=== PATIENT | male | born 1990 | race Caucasian/White ===

== ENCOUNTER 2016-12-07 21:50 | Emergency (ER) | payer BC ==
[2016-12-07 22:01] VITALS: BP 149/84
[2016-12-07] MEDS ORDERED: Lidocaine 1% with EPINEPHrine 1:100,000 20 ML MDV INJECT ONE (22:30)
--- NOTE | 2016-12-07 22:33 | EDM.PDOC ---
ED HPI GENERAL MEDICAL PROBLEM - General Chief Complaint: Laceration Stated Complaint: CUT LEFT HAND Time Seen by Provider: 12/07/16 22:29 Source of Information: Reports: Patient History Limitations: Reports: No Limitations - History of Present Illness INITIAL COMMENTS - FREE TEXT/NARRATIVE: Patient is a 26-year-old male presents ED complaining of a laceration between the thumb and forefinger measuring approximate 1 cm in length while utilizing a utility cart to cut a credit card into pieces. Bleeding has subsided. Pain is minimal. No n/t to hand. Left Hand Pain Score (Numeric/FACES): 2 - Related Data Allergies Allergy/AdvReac Type Severity Reaction Status Date / Time No Known Allergies Allergy Verified 12/07/16 22:01 Home Meds: Home Meds Albuterol Sulfate [Proair Hfa] 8.5 gm IH BID 12/07/16 [History] Fexofenadine [Awa] 180 mg PO DAILY 12/07/16 [History] Fluticasone/Salmeterol [Advair Diskus 100-50] 1 puff INH BID 12/07/16 [History] Montelukast [Singulair] 4 mg PO DAILY 12/07/16 [History] Past Medical History Respiratory History: Reports: Asthma Social & Family History - Tobacco Use Smoking Status *Q: Former Smoker Used Tobacco, but Quit: Yes Month Tobacco Last Used: 12 Second Hand Smoke Exposure: No - Caffeine Use Caffeine Use: Reports: Coffee, Soda - Recreational Drug Use Recreational Drug Use: No ED ROS GENERAL - Review of Systems Review Of Systems: ROS reveals no pertinent complaints other than HPI. ED EXAM, SKIN/RASH Exam: See Below Exam Limited By: No Limitations General Appearance: Alert, WD/WN, No Apparent Distress Ears: Hearing Grossly Normal Nose: Normal Inspection Throat/Mouth: Normal Voice, No Airway Compromise Neck: Normal Inspection, Supple Respiratory/Chest: No Respiratory Distress, No Accessory Muscle Use Cardiovascular: Normal Peripheral Pulses, Regular Rate, Rhythm Peripheral Pulses: 2+: Radial (L) Neurological: Alert, Oriented, CN II-XII Intact Psychiatric: Normal Affect, Normal Mood Skin: Warm, Dry, Normal Color Location, Skin: Other ( Small 1 cm deep laceration between the fourth finger and thumb. Bleeding is controlled. Minimal pain present.) ED SKIN PROCEDURES - Laceration/Wound Repair Left Hand Lac/Wound length In cm: 1 Appearance: Subcutaneous, Clean Distal NVT: Neuro & Vascular Intact Anesthetic Type: Local Local Anesthesia - Lidocaine (Xylocaine): 1% With EPI Local Anesthetic Volume: 2cc Skin Prep: Chlorhexidine (Hibiciens), Saline, Sterile Drape Exploration/Debridement/Repair: Wound Explored, in a Bloodless Field, No Foreign Material Found Closed with: Sutures Suture Size: 4-0 # of Sutures: 2 Suture Type: Prolene, Interrupted, Simple Drain Placement: No Sterile Dressing Applied: Nurse Tetanus Status Addressed: Yes (Tetanus status up-to-date) Complications: No Course - Vital Signs Last Recorded V/S: Last Vital Signs Temp 97.8 F 12/07/16 21:57 Pulse 69 12/07/16 21:57 Resp 18 12/07/16 21:57 BP 149/84 H 12/07/16 21:57 Pulse Ox 96 12/07/16 21:57 - Orders/Labs/Meds Meds: Medications Discontinued Medications Generic Name Dose Route Start Last Admin Trade Name Oli PRN Reason Stop Dose Admin Lidocaine/Epinephrine 20 ml 12/07/16 22:30 12/07/16 22:46 Xylocaine 1% With Epinephrine 1:100,000 INJECT 12/07/16 22:31 20 ml ONETIME ONE Administration - Re-Assessments/Exams Free Text/Narrative Re-Assessment/Exam: Ordered 1% lidocaine-epi. Laceration closed with no complications. Discharged home with instructions as documented. Departure - Departure Time of Disposition: 22:33 Disposition: Home, Self-Care 01 Condition: Good Clinical Impression: Hand laceration Qualifiers: Encounter type: initial encounter Foreign body presence: without foreign body Laterality: left Qualified Code(s): S61.412A - Laceration without foreign body of left hand, initial encounter - Discharge Information Instructions: Laceration Care, Adult, [id number], Stitches, [place], or Adhesive Wound Closure, [id number] Referrals: Pako Zuleta MD [Primary Care Provider] - Forms: ED Department Discharge Additional Instructions: Cleanse site twice daily with soap and water, pat dry, reapply Triple Antibiotic ointment and dressing. Refrain from soaking wound. Sutures need to come out in 10 days. Follow-up with a provider at [facility] for suture removal. Return to the ED for increased swelling, pain, purulent drainage, fever/chills, or any additional new or worsening symptoms.
== END 2016-12-07 23:06 | disposition home or self-care (01) ==
LOC: JD.ED 21:50
DX: S61.412A Laceration without foreign body of left hand, initial encounter (principal); Z79.899 Other long term (current) drug therapy; J45.909 Unspecified asthma, uncomplicated; Z87.891 Personal history of nicotine dependence; W26.0XXA Contact with knife, initial encounter
CPT/HCPCS: 12001; 99282-25; 99283-25

== ENCOUNTER 2017-08-07 20:09 | Emergency (ER) | payer BC ==
[2017-08-07 20:15] VITALS: BP 142/82
--- NOTE | 2017-08-07 21:03 | EDM.PDOC ---
ED HPI GENERAL MEDICAL PROBLEM - General Chief Complaint: Respiratory Problem Stated Complaint: TROUBLE BREATHING Time Seen by Provider: 08/07/17 20:39 Source of Information: Reports: Patient, Family () History Limitations: Reports: No Limitations - History of Present Illness INITIAL COMMENTS - FREE TEXT/NARRATIVE: The patient reports shortness of breath for the past 2 days. No recent cough or wheezing. No recent fever. No chest pain. He states that his heart felt to be going quickly earlier tonight. No recent nausea, vomiting, constipation, diarrhea, or urinary symptoms. The patient states that he has a presumptive diagnosis of asthma, for which he takes Symbicort and Singulair. He has continued to take those medicines over the past couple of days. He has an albuterol MDI at home, but states that he has not taken any over the past couple of days. The patient states that he had similar symptoms about a year ago. They were not very severe, and the patient did not seek medical evaluation at the time. The patient's PCP is Dr. Osman. - Related Data Allergies Allergy/AdvReac Type Severity Reaction Status Date / Time No Known Allergies Allergy Verified 08/07/17 20:15 Home Meds: Home Meds Albuterol Sulfate [Proair Hfa] 8.5 gm IH BID 12/07/16 [History] Fexofenadine [Awa] 180 mg PO DAILY 12/07/16 [History] Montelukast [Singulair] 4 mg PO DAILY 12/07/16 [History] Past Medical History HEENT History: Reports: Allergic Rhinitis, Impaired Vision Respiratory History: Reports: Asthma (Presumptive diagnosis as an ) Endocrine/Metabolic History: Reports: Obesity/BMI 30+ - Past Surgical History HEENT Surgical History: Reports: Myringotomy w Tube(s) (bilateral) Musculoskeletal Surgical History: Reports: ORIF (left wrist) Social & Family History - Tobacco Use Smoking Status *Q: Current Some Day Smoker Second Hand Smoke Exposure: No - Caffeine Use Caffeine Use: Reports: Soda - Alcohol Use Alcohol Use History: Yes Alcohol Use Frequency: Socially - Recreational Drug Use Recreational Drug Use: No - Living Situation & Occupation Living situation: Reports: , with Spouse, with Family (1 ) Occupation: Employed ([employer]) ED ROS GENERAL - Review of Systems Review Of Systems: ROS reveals no pertinent complaints other than HPI. ED EXAM, GENERAL - Physical Exam Exam: See Below Exam Limited By: No Limitations General Appearance: Alert, WD/WN, No Apparent Distress Eye Exam: Bilateral Eye: Normal Inspection Ears: Normal External Exam, Hearing Grossly Normal Nose: Normal Inspection, No Blood Throat/Mouth: Normal Inspection, Normal Lips, Normal Voice, No Airway Compromise Head: Atraumatic, Normocephalic Neck: Normal Inspection, Full Range of Motion Respiratory/Chest: No Respiratory Distress, Lungs Clear, Normal Breath Sounds, No Accessory Muscle Use. No: Crackles, Rhonchi, Wheezing, Prolonged Expiration Cardiovascular: Normal Peripheral Pulses, Regular Rate, Rhythm, No Edema, No Gallop, No JVD, No Murmur, No Rub Peripheral Pulses: 4+: Radial (L), Radial (R) GI/Abdominal: Normal Bowel Sounds, Soft, Non-Tender, No Organomegaly, No Distention, No Abnormal Bruit, No Mass, Other (Obese) (Male) Exam: Deferred Rectal (Males) Exam: Deferred Back Exam: Normal Inspection, Full Range of Motion, NT Extremities: Normal Inspection, Normal Range of Motion, No Pedal Edema, Normal Capillary Refill Neurological: Alert, Oriented, Normal Cognition, No Motor/Sensory Deficits Psychiatric: Normal Affect Skin Exam: Warm, Dry, Intact, Normal Color, No Rash EKG INTERPRETATION EKG Date: 08/07/17 Time: 20:44 Rhythm: NSR Rate (Beats/Min): 96 Hecker: Normal P-Wave: Present QRS: Normal ST-T: Elevated (J-point elevation in anterior leads - no ischemic changes) QT: Normal Comparison: NA - No Prior EKG Course - Vital Signs Last Recorded V/S: Last Vital Signs Temp 37.1 C 08/07/17 20:13 Pulse 92 08/07/17 20:13 Resp 18 08/07/17 20:13 BP 142/82 H 08/07/17 20:13 Pulse Ox 100 08/07/17 20:13 Orthostatic Blood Pressure [ 120/74 Standing] Orthostatic Blood Pressure [ 130/84 Sitting] Orthostatic Blood Pressure [ 112/68 Supine] - Orders/Labs/Meds Orders: Active Orders 24 hr Category Date Time Status EKG Documentation Completion [RC] STAT Care 08/07/17 20:40 Active Orthostatic Vital Signs [RC] STAT Care 08/07/17 20:40 Active RT Peak Flow Measurement [RC] ASDIRECTED Care 08/07/17 22:20 Active Chest 2V [CR] Stat Exams 08/07/17 20:40 Taken Labs: Laboratory Tests 08/07/17 08/07/17 08/07/17 Range/Units 20:50 20:50 20:50 WBC 8.43 (4.23-9.07) K/mm3 RBC 5.50 (4.63-6.08) M/mm3 Hgb 16.2 (13.7-17.5) gm/L Hct 47.2 (40.1-51.0) % MCV 85.8 (79.0-92.2) fl MCH 29.5 (25.7-32.2) pg MCHC 34.3 (32.2-35.5) g/dl RDW Std Deviation 39.2 (35.1-43.9) fL Plt Count 263 (163-337) K/mm3 MPV 9.3 L (9.4-12.3) fl Neutrophils % (Manual) 54 (40-60) % Band Neutrophils % 0 (0-10) % Lymphocytes % (Manual) 42 H (20-40) % Atypical Lymphs % 0 % Monocytes % (Manual) 4 (2-10) % Eosinophils % (Manual) 0 L (0.8-7.0) % Basophils % (Manual) 0 L (0.2-1.2) Platelet Estimate Adequate RBC Morph Comment Normal PT 10.8 (8.0-13.0) SECONDS INR 1.01 APTT 30 (22-36) SECONDS D-Dimer, Quantitative < 0.19 L (0.19-0.59) mg/L Puncture Site Rt radial ABG pH 7.55 H (7.35-7.45) ABG pCO2 25.1 L (35.0-45.0) mmHg ABG pO2 88.0 (80.0-100.0) mmHg ABG HCO3 22.2 (22.0-26.0) meq/L ABG O2 Saturation 98.9 H (96.0-97.0) % ABG Base Excess 1.8 (-2-2.0) Wil Test Positive A-a Gradient 15 mmHg O2 Delivery Device Room air FiO2 21.00 (21.00-100.00) % Sodium (136-145) mEq/L Potassium (3.5-5.1) mEq/L Chloride (98-107) mEq/L Carbon Dioxide (21-32) mEq/L Anion Gap (5-15) BUN (7-18) mg/dL Creatinine (0.7-1.3) mg/dL Est Cr Clr Drug Dosing mL/min Estimated GFR (MDRD) (>60) mL/min BUN/Creatinine Ratio (14-18) Glucose (74-106) mg/dL Calcium (8.5-10.1) mg/dL Magnesium (1.8-2.4) mg/dl Total Bilirubin (0.2-1.0) mg/dL AST (15-37) U/L ALT (16-63) U/L Alkaline Phosphatase (46-116) U/L Troponin I (0.00-0.056) ng/mL NT-Pro-B Natriuret Pep (0-125) pg/mL Total Protein (6.4-8.2) g/dl Albumin (3.4-5.0) g/dl Globulin gm/dL Albumin/Globulin Ratio (1-2) TSH 3rd Generation (0.358-3.74) uIU/mL Urine Color (Yellow) Urine Appearance (Clear) Urine pH (5.0-8.0) Ur Specific Cedar (1.005-1.030) Urine Protein (Negative) Urine Glucose (UA) (Negative) Urine Ketones (Negative) Urine Occult Blood (Negative) Urine Nitrite (Negative) Urine Bilirubin (Negative) Urine Urobilinogen (0.2-1.0) Ur Leukocyte Esterase (Negative) Urine RBC (0-5) /hpf Urine WBC (0-5) /hpf Ur Epithelial Cells (0-5) /hpf Urine Bacteria (FEW) /hpf Urine Mucus (FEW) /hpf 08/07/17 08/07/17 08/07/17 Range/Units 20:50 20:50 21:13 WBC (4.23-9.07) K/mm3 RBC (4.63-6.08) M/mm3 Hgb (13.7-17.5) gm/L Hct (40.1-51.0) % MCV (79.0-92.2) fl MCH (25.7-32.2) pg MCHC (32.2-35.5) g/dl RDW Std Deviation (35.1-43.9) fL Plt Count (163-337) K/mm3 MPV (9.4-12.3) fl Neutrophils % (Manual) (40-60) % Band Neutrophils % (0-10) % Lymphocytes % (Manual) (20-40) % Atypical Lymphs % % Monocytes % (Manual) (2-10) % Eosinophils % (Manual) (0.8-7.0) % Basophils % (Manual) (0.2-1.2) Platelet Estimate RBC Morph Comment PT (8.0-13.0) SECONDS INR APTT (22-36) SECONDS D-Dimer, Quantitative (0.19-0.59) mg/L Puncture Site ABG pH (7.35-7.45) ABG pCO2 (35.0-45.0) mmHg ABG pO2 (80.0-100.0) mmHg ABG HCO3 (22.0-26.0) meq/L ABG O2 Saturation (96.0-97.0) % ABG Base Excess (-2-2.0) Wil Test A-a Gradient mmHg O2 Delivery Device FiO2 (21.00-100.00) % Sodium 138 (136-145) mEq/L Potassium 3.5 (3.5-5.1) mEq/L Chloride 101 (98-107) mEq/L Carbon Dioxide 26 (21-32) mEq/L Anion Gap 14.5 (5-15) BUN 17 (7-18) mg/dL Creatinine 1.0 (0.7-1.3) mg/dL Est Cr Clr Drug Dosing 123.94 mL/min Estimated GFR (MDRD) > 60 (>60) mL/min BUN/Creatinine Ratio 17.0 (14-18) Glucose 103 (74-106) mg/dL Calcium 10.6 H (8.5-10.1) mg/dL Magnesium 1.8 (1.8-2.4) mg/dl Total Bilirubin 0.4 (0.2-1.0) mg/dL AST 38 H (15-37) U/L ALT 87 H (16-63) U/L Alkaline Phosphatase 86 (46-116) U/L Troponin I < 0.017 (0.00-0.056) ng/mL NT-Pro-B Natriuret Pep 6 (0-125) pg/mL Total Protein 7.5 (6.4-8.2) g/dl Albumin 4.2 (3.4-5.0) g/dl Globulin 3.3 gm/dL Albumin/Globulin Ratio 1.3 (1-2) TSH 3rd Generation 4.469 H (0.358-3.74) uIU/mL Urine Color Light yellow (Yellow) Urine Appearance Clear (Clear) Urine pH 7.0 (5.0-8.0) Ur Specific Cedar 1.015 (1.005-1.030) Urine Protein Negative (Negative) Urine Glucose (UA) Negative (Negative) Urine Ketones Negative (Negative) Urine Occult Blood Negative (Negative) Urine Nitrite Negative (Negative) Urine Bilirubin Negative (Negative) Urine Urobilinogen 0.2 (0.2-1.0) Ur Leukocyte Esterase Negative (Negative) Urine RBC 0-5 (0-5) /hpf Urine WBC 0-5 (0-5) /hpf Ur Epithelial Cells 0-5 (0-5) /hpf Urine Bacteria Occasional (FEW) /hpf Urine Mucus Not seen (FEW) /hpf - Re-Assessments/Exams Free Text/Narrative Re-Assessment/Exam: 08/07/17 21:05 The patient's ABG represents an [id number] (incompletely compensated) respiratory alkalosis. 08/07/17 21:25 The patient is not orthostatic. 08/07/17 21:25 Two-view chest radiograph appears to be grossly normal. Cardiac silhouette is within normal limits. No pulmonary vascular congestion. No pleural effusions. No focal infiltrate. No pneumothorax. No hyperinflation. Formal read per the Radiologist pending. 08/07/17 22:21 Test results discussed with the patient and his . Today's workup is remarkable for an ABG demonstrating considerable respiratory alkalosis. The remainder of his workup is unremarkable, with the exception of TSH being high at 4.469, suggesting hypothyroidism - he needs to follow-up on this. Causes of hyperventilation, such as metabolic acidosis, hypocalcemia, hypoglycemia, hyperthyroidism, liver failure, severe anemia, sepsis, acute coronary event, pneumothorax, pneumonia, dysrhythmia, PE, and CHF have been ruled out. By a process of elimination, it appears that the patient's hyperventilation is do to anxiety. Since this is only the second time that the patient has had this, no medical treatment is required, however, if these symptoms recur, I would like her to follow-up with his PCP, Dr. Osman, to discuss treatment options for anxiety. As the patient may have asthma, I have asked the respiratory therapist to provide the patient with a peak flow meter, instructing him that if he feels short of breath and his peak flow is low, he should use his albuterol. If his peak flow is normal, he should not. Departure - Departure Time of Disposition: 22:24 Disposition: Home, Self-Care 01 Condition: Good Clinical Impression: Hyperventilation syndrome, Elevated TSH - Discharge Information Instructions: Hyperventilation Referrals: Pako Zuleta MD [Primary Care Provider] - Forms: ED Department Discharge Additional Instructions: You were seen in the emergency room for 2 days of shortness of breath without wheezing or cough. Workup in the ER included blood work, an arterial blood gas, positional blood pressure checks, a chest x-ray, and an ECG. Your workup confirmed that you were hyperventilating. Medical causes of hyperventilation, such as metabolic acidosis, hypocalcemia, hypoglycemia, hyperthyroidism, liver failure, severe anemia, sepsis, acute coronary event, pneumothorax, pneumonia, dysrhythmia, PE, and CHF were ruled out. By a process of elimination, your hyperventilation is due to anxiety. Since this is only the second time that this has happened, no medical treatment is required, however, if this continues to happen, we recommend that you follow- up with your PCP, Dr. Osman, to discuss treatment options for anxiety. The only other lab abnormality that was found is your TSH (Thyroid Stimulating Hormone) was high, suggesting that you might be hypothyroid. We recommend you follow-up with Dr. Osman to have this evaluated. You have been provided with a peak flow meter. You should learn how to use this properly, and know what your normal peak flow numbers are. We recommend that you check your peak flow twice a week - if you cannot get your peak flow into the green zone, even if you feel fine, you should notify Dr. Osman, as this may indicate an impending asthma exacerbation. If you are feeling short of breath and your peak flow is low, use your albuterol. If your peak flow is normal, DO NOT use your albuterol. If any other problems, please do not hesitate to return to the ER. - My Orders Last 24 Hours: My Active Orders 08/07/17 20:40 EKG Documentation Completion [RC] STAT Orthostatic Vital Signs [RC] STAT Chest 2V [CR] Stat 08/07/17 22:20 RT Peak Flow Measurement [RC] ASDIRECTED - Assessment/Plan Last 24 Hours: My Active Orders 08/07/17 20:40 EKG Documentation Completion [RC] STAT Orthostatic Vital Signs [RC] STAT Chest 2V [CR] Stat 08/07/17 22:20 RT Peak Flow Measurement [RC] ASDIRECTED
--- NOTE | 2017-08-08 12:46 | CR ---
Chest: Two views of the chest were obtained. Comparison: No prior chest x-ray. Heart size and mediastinum are within normal limits. Lungs are clear. Bony structures appear within normal limits. Impression: 1. Nothing acute is appreciated on two-view chest x-ray. Diagnostic code #1
== END 2017-08-07 22:40 | disposition home or self-care (01) ==
LOC: JD.ED 20:09
DX: F45.8 Other somatoform disorders (principal); R94.6 Abnormal results of thyroid function studies; J45.909 Unspecified asthma, uncomplicated; F17.200 Nicotine dependence, unspecified, uncomplicated; Z79.899 Other long term (current) drug therapy
CPT/HCPCS: 36415; 36600; 71046; 71046-26; 80053; 81001; 82803; 83735; 83880; 84443; 84484; 85025; 85379; 85610; 85730; 93005; 99283; 99285-25

== ENCOUNTER 2017-10-17 23:48 | Emergency (ER) | payer BC ==
[2017-10-17 23:58] VITALS: BP 139/78
[2017-10-18] MEDS ORDERED: Albuterol 0.083% 2.5 MG/3 ML Neb Soln NEB ONE (00:16)
[2017-10-18] MEDS ORDERED: LORazepam 0.5 MG Tab PO ONE (00:52)
--- NOTE | 2017-10-18 00:55 | EDM.PDOC ---
ED HPI GENERAL MEDICAL PROBLEM - General Chief Complaint: Respiratory Problem Stated Complaint: SOB Time Seen by Provider: 10/18/17 00:09 Source of Information: Reports: Patient, RN Notes Reviewed - History of Present Illness INITIAL COMMENTS - FREE TEXT/NARRATIVE: 27-year-old male comes in with sensation of fullness upper neck that first started the day or 2 ago. He feels tightness of the back of his throat, mild discomfort with swallowing and also some mild shortness of breath. He does have history of asthma when he was younger but has not had recent cough congestion or scratchy throat. No fever or chills. He does get occasional heartburn but not for the last few days. He states he did have similar symptoms once about a year ago and this was felt to be secondary to "panic attack". Chest Pain Score (Numeric/FACES): 1 - Related Data Allergies Allergy/AdvReac Type Severity Reaction Status Date / Time dust Allergy Shortness Uncoded 10/17/17 23:59 of Breath Home Meds: Home Meds Albuterol Sulfate [Proair Hfa] 8.5 gm IH BID PRN 12/07/16 [History] Fexofenadine [Awa] 180 mg PO DAILY 12/07/16 [History] Montelukast [Singulair] 4 mg PO DAILY 12/07/16 [History] Past Medical History HEENT History: Reports: Allergic Rhinitis, Impaired Vision Respiratory History: Reports: Asthma Endocrine/Metabolic History: Reports: Obesity/BMI 30+ - Past Surgical History HEENT Surgical History: Reports: Myringotomy w Tube(s) Musculoskeletal Surgical History: Reports: ORIF Social & Family History - Tobacco Use Smoking Status *Q: Never Smoker - Caffeine Use Caffeine Use: Reports: None - Recreational Drug Use Recreational Drug Use: No - Living Situation & Occupation Living situation: Reports: , with Spouse, with Family (1 infant) Occupation: Employed ([employer]) ED ROS GENERAL - Review of Systems Review Of Systems: See Below Constitutional: Denies: Fever, Chills HEENT: Reports: Throat Swelling (Sensation of swelling posterior throat, upper neck). Denies: Throat Pain Respiratory: Reports: Shortness of Breath (Mild). Denies: Cough Cardiovascular: Denies: Chest Pain GI/Abdominal: Reports: Other (Occasional heartburn but not for the last few days ). Denies: Abdominal Pain, Nausea, Vomiting Musculoskeletal: Reports: No Symptoms Skin: Reports: No Symptoms Neurological: Reports: No Symptoms ED EXAM, GENERAL - Physical Exam Exam: See Below General Appearance: Alert, Anxious (Mild) Eye Exam: Bilateral Eye: PERRL Throat/Mouth: Normal Inspection, Normal Oropharynx, Other (No visible swelling or erythema) Head: No: Facial Swelling Neck: Supple, Non-Tender, Full Range of Motion. No: Lymphadenopathy (R) Respiratory/Chest: No Respiratory Distress, Lungs Clear, Normal Breath Sounds Cardiovascular: Regular Rate, Rhythm Extremities: Normal Inspection, Normal Range of Motion Neurological: Alert, Oriented, No Motor/Sensory Deficits Skin Exam: Warm, Dry, Normal Color, No Rash Course - Vital Signs Last Recorded V/S: Last Vital Signs Temp 98 F 10/17/17 23:54 Pulse 73 10/17/17 23:54 Resp 20 10/17/17 23:54 BP 139/78 10/17/17 23:54 Pulse Ox 100 10/18/17 00:28 - Orders/Labs/Meds Orders: Active Orders 24 hr Category Date Time Status RT Aerosol Therapy [RC] ASDIRECTED Care 10/18/17 00:16 Active Meds: Medications Discontinued Medications Generic Name Dose Route Start Last Admin Trade Name Freq PRN Reason Stop Dose Admin Albuterol 2.5 mg 10/18/17 00:16 10/18/17 00:26 Proventil Neb Soln NEB 10/18/17 00:17 2.5 mg ONETIME ONE Administration Lorazepam 0.5 mg 10/18/17 00:52 10/18/17 00:59 Ativan PO 10/18/17 00:53 0.5 mg ONETIME ONE Administration - Re-Assessments/Exams Free Text/Narrative Re-Assessment/Exam: 10/18/17 01:48 We did do a neb treatment. He feels like his breathing is slightly easier but no major difference. His throat Still feels tight. He feels like there is still a tightness and some difficulty with swallowing. He is handling secretions well. States he can normally swallow and eat just fine, does not have to cut or chew his food excessively. Sounds like swallowing is normally not a problem for him. I've considered ordered during outpatient barium swallow but I think it would be appropriate to give him a few days, see if this does resolve. It does appear that there is at least some component of anxiety and panic attack secondary to his current symptoms making it all worse. We are going to give him Ativan 0.5 mg orally at this time. He is agreeable to that. Discharge instructions as documented. Departure - Departure Time of Disposition: 00:53 Disposition: Home, Self-Care 01 Condition: Fair Clinical Impression: Panic attack GERD (gastroesophageal reflux disease) Qualifiers: Esophagitis presence: esophagitis presence not specified Qualified Code(s): K21.9 - Gastro-esophageal reflux disease without esophagitis - Discharge Information Instructions: Gastroesophageal Reflux Disease, Adult, [id number] Referrals: Pako Zuleta MD [Primary Care Provider] - Forms: ED Department Discharge Additional Instructions: Begin Pepcid 20 mg twice daily to help reduce acidity of your stomach, you have been given Ativan 0.5 mg orally while here in the ED which is a muscle and nerve relaxant, do not drive for at least 8-10 hours, try follow-up with Dr. Giancarlo Leong in about 2-3 days for recheck, call tomorrow morning for appointment, return to ED as needed if symptoms worsening in any way. - My Orders Last 24 Hours: My Active Orders 10/18/17 00:16 RT Aerosol Therapy [RC] ASDIRECTED - Assessment/Plan Last 24 Hours: My Active Orders 10/18/17 00:16 RT Aerosol Therapy [RC] ASDIRECTED
== END 2017-10-18 01:03 | disposition home or self-care (01) ==
LOC: JD.ED 23:48
DX: F41.0 Panic disorder [episodic paroxysmal anxiety] (principal); K21.9 Gastro-esophageal reflux disease without esophagitis; J45.909 Unspecified asthma, uncomplicated; Z79.899 Other long term (current) drug therapy; Z91.09 Other allergy status, other than to drugs and biological substances
CPT/HCPCS: 94640; 99284; A9270; 99283

== ENCOUNTER 2018-08-08 17:20 | Emergency (ER) | payer BC ==
[2018-08-08 17:27] VITALS: BP 163/75
[2018-08-08] MEDS ORDERED: Albuterol 0.083% 2.5 MG/3 ML Neb Soln NEB ONE (17:46)
--- NOTE | 2018-08-08 17:50 | EDM.PDOC ---
ED HPI GENERAL MEDICAL PROBLEM - General Chief Complaint: Respiratory Problem Stated Complaint: COUGH AND SOB Time Seen by Provider: 08/08/18 17:40 Source of Information: Reports: Patient History Limitations: Reports: No Limitations - History of Present Illness INITIAL COMMENTS - FREE TEXT/NARRATIVE: Patient is a 28-year-old male with a history of asthma who presents ED complaining of some shortness of breath. 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 He ran out of his albuterol inhaler quite some time ago and has not made arrangements to see a PCP to obtain a new prescription. He says slight cough productive at times. No documented fever, sinus congestion, runny nose, postnasal drip, sore throat, chest pain, shortness of breath other than today, dull pain, nausea vomiting, and/or any additional complaints. Patient continues take Unasyn 9, Symbicort, Zyrtec, famotidine, and sertraline. He has a history of panic attacks in the past. - Related Data Allergies Allergy/AdvReac Type Severity Reaction Status Date / Time dust Allergy Shortness Uncoded 08/08/18 17:27 of Breath Home Meds: Home Meds Budesonide [Rhinocort Allergy] 2 spray INH BEDTIME 12/18/17 [History] Budesonide/Formoterol Fumarate [Symbicort 160-4.5 Mcg Inhaler] 2 puff INH DAILY 12/18/17 [History] Cetirizine [ZyrTEC] 10 mg PO DAILY 12/18/17 [History] Famotidine [Pepcid] 20 mg PO BID 12/18/17 [History] Mcbee-3/DHA/Epa/Fish Oil [Mcbee 3 500 Softgel] 1 tab PO DAILY 12/18/17 [History] Sertraline [Zoloft] 0 mg PO DAILY 12/18/17 [History] Albuterol Sulfate [Proair Hfa] 8.5 gm IH QID PRN #1 hfa.aer.ad 08/08/18 [Rx] Past Medical History HEENT History: Reports: Allergic Rhinitis, Impaired Vision Respiratory History: Reports: Asthma Gastrointestinal History: Reports: GERD Endocrine/Metabolic History: Reports: Obesity/BMI 30+ - Past Surgical History HEENT Surgical History: Reports: Myringotomy w Tube(s) Musculoskeletal Surgical History: Reports: ORIF Social & Family History - Tobacco Use Smoking Status *Q: Never Smoker - Caffeine Use Caffeine Use: Reports: Coffee, Tea - Recreational Drug Use Recreational Drug Use: No - Living Situation & Occupation Living situation: Reports: , with Spouse, with Family (1 child) Occupation: Employed ([employer]) ED ROS GENERAL - Review of Systems Review Of Systems: See Below Constitutional: Denies: Fever, Chills, Malaise, Weakness, Fatigue, Decreased Appetite HEENT: Reports: No Symptoms Respiratory: Reports: Shortness of Breath, Wheezing, Cough, Sputum. Denies: Pleuritic Chest Pain, Hemoptysis Cardiovascular: Reports: No Symptoms GI/Abdominal: Reports: No Symptoms Musculoskeletal: Reports: No Symptoms Neurological: Reports: No Symptoms ED EXAM, GENERAL - Physical Exam Exam: See Below Exam Limited By: No Limitations General Appearance: Alert, WD/WN, Anxious Eye Exam: Bilateral Eye: Normal Inspection, PERRL Ears: Hearing Grossly Normal Nose: Normal Inspection, Normal Mucosa, No Blood Throat/Mouth: Normal Inspection, Normal Oropharynx, Normal Voice, No Airway Compromise Neck: Normal Inspection, Supple Respiratory/Chest: No Respiratory Distress, No Accessory Muscle Use, Chest Non- Tender, Wheezing (faint upper respiratory bilateral), Prolonged Expiration Cardiovascular: Normal Peripheral Pulses, Regular Rate, Rhythm, No Murmur Peripheral Pulses: 2+: Radial (L) Extremities: Normal Inspection, Normal Range of Motion, Non-Tender, No Pedal Edema Neurological: Alert, Oriented, CN II-XII Intact, Normal Cognition, No Motor/ Sensory Deficits Psychiatric: Normal Affect, Normal Mood Skin Exam: Warm, Dry, Normal Color Course - Vital Signs Last Recorded V/S: Last Vital Signs Temp 98.1 F 08/08/18 17:25 Pulse 78 08/08/18 17:25 Resp 14 08/08/18 17:25 BP 163/75 H 08/08/18 17:25 Pulse Ox 97 08/08/18 18:09 - Orders/Labs/Meds Orders: Active Orders 24 hr Category Date Time Status RT Aerosol Therapy [RC] ASDIRECTED Care 08/08/18 17:46 Active Chest 2V [CR] Stat Exams 08/08/18 17:46 Taken Meds: Medications Discontinued Medications Generic Name Dose Route Start Last Admin Trade Name Freq PRN Reason Stop Dose Admin Albuterol 2.5 mg 08/08/18 17:46 08/08/18 18:09 Proventil Neb Soln NEB 08/08/18 17:47 2.5 mg ONETIME ONE Administration - Re-Assessments/Exams Free Text/Narrative Re-Assessment/Exam: Ordered chest x-ray one view and also albuterol neb treatment 1. Patient does have a history of asthma has ran out of his albuterol inhaler and is waiting for a new prescription. He is concerned he may have pneumonia. I am likely. We' ll obtain x-ray of the chest and the breathing treatment and see how he does. 08/08/18 18:42 Chest x-ray indicated no acute findings. Final interpretation is pending. Patient states he feels much better after administration of the albuterol neb treatment. Thinks he became panicky when he could not catch his breath while working today. Again he has not been taking his albuterol inhaler since he ran out of this medication. I will prescribe a albuterol inhaler for the patient. Return precautions were discussed with the patient. Patient will start medical care here locally to obtain further prescriptions and management of his asthma. Patient had no further questions or concerns. Agreed with plan. Discharge instructions as documented. Departure - Departure Time of Disposition: 19:57 Disposition: Home, Self-Care 01 Condition: Good Clinical Impression: Panic attack Asthma attack Qualifiers: Asthma severity: mild Asthma persistence: intermittent Qualified Code(s): J45.21 - Mild intermittent asthma with (acute) exacerbation - Discharge Information Prescriptions: Albuterol Sulfate [Proair Hfa] 8.5 gm IH QID PRN #1 hfa.aer.ad PRN Reason: Shortness Of Breath Instructions: Asthma, Adult Referrals: Pako Zuleta MD [Primary Care Provider] - Forms: ED Department Discharge Additional Instructions: Take all your home medications as prescribed. Follow-up with PCP this coming week to establish medical care and for reevaluation. Please return back to the ED if he developed any new or worsening symptoms. - My Orders Last 24 Hours: My Active Orders 08/08/18 17:46 RT Aerosol Therapy [RC] ASDIRECTED Chest 2V [CR] Stat - Assessment/Plan Last 24 Hours: My Active Orders 08/08/18 17:46 RT Aerosol Therapy [RC] ASDIRECTED Chest 2V [CR] Stat
--- NOTE | 2018-08-09 06:20 | CR ---
Chest: Two views of the chest were obtained. Comparison: Prior chest x-ray of 08/07/17. Heart size and mediastinum are within normal limits. Lungs are clear. Bony structures are unremarkable. Impression: 1. Nothing acute is appreciated on two-view chest x-ray. No significant change is seen from previous exam. Diagnostic code #1
== END 2018-08-08 20:09 | disposition home or self-care (01) ==
LOC: JD.ED 17:20
DX: J45.21 Mild intermittent asthma with (acute) exacerbation (principal); J45.909 Unspecified asthma, uncomplicated; K21.9 Gastro-esophageal reflux disease without esophagitis; Z79.899 Other long term (current) drug therapy; Z91.09 Other allergy status, other than to drugs and biological substances
CPT/HCPCS: 71046; 71046-26; 94640; 99284; 99285-25

== ENCOUNTER 2019-08-04 07:24 | Emergency (ER) | payer BC, SELFPAY ==
[2019-08-04] MEDS ORDERED: Albuterol/Ipratropium 3.0-0.5 MG/3 ML Neb Soln NEB ONE (07:47)
[2019-08-04] MEDS ORDERED: predniSONE 20 MG Tab PO ONE (07:47)
--- NOTE | 2019-08-04 07:51 | EDM.PDOC ---
ED HPI GENERAL MEDICAL PROBLEM - General Chief Complaint: Respiratory Problem Stated Complaint: SOB Time Seen by Provider: 08/04/19 07:42 Source of Information: Reports: Patient History Limitations: Reports: No Limitations - History of Present Illness INITIAL COMMENTS - FREE TEXT/NARRATIVE: The patient presents with shortness of breath and chest burning. This all started early this morning at about midnight. He did use his inhaler. That may have helped some. He has a history of asthma. He has no fever, chills or cough. He has no abdominal pain, nausea or vomiting. He does not smoke. Chest Pain Score (Numeric/FACES): 2 - Related Data Allergies Allergy/AdvReac Type Severity Reaction Status Date / Time dust Allergy Shortness Uncoded 03/24/19 15:14 of Breath Home Meds: Home Meds Budesonide [Rhinocort Allergy] 2 spray INH BEDTIME 12/18/17 [History] Budesonide/Formoterol Fumarate [Symbicort 160-4.5 Mcg Inhaler] 2 puff INH DAILY 12/18/17 [History] Cetirizine [ZyrTEC] 10 mg PO DAILY 12/18/17 [History] Albuterol Sulfate [Proair Hfa] 8.5 gm IH QID PRN #1 hfa.aer.ad 08/08/18 [Rx] Albuterol/Ipratropium [DuoNeb 3.0-0.5 MG/3 ML] 3 ml .XX Q6H #60 neb 03/24/19 [Rx ] Citalopram [Citalopram HBr] 03/24/19 [History] LORazepam [Ativan] 0.5 mg PO Q6H PRN #8 tablet 03/24/19 [Rx] Montelukast [Singulair] 03/24/19 [History] predniSONE 40 mg PO Q24H #10 tab 03/24/19 [Rx] predniSONE [Prednisone] 40 mg PO DAILY #10 tablet 08/04/19 [Rx] Past Medical History HEENT History: Reports: Allergic Rhinitis, Impaired Vision Respiratory History: Reports: Asthma Gastrointestinal History: Reports: GERD Psychiatric History: Reports: Depression Endocrine/Metabolic History: Reports: Obesity/BMI 30+ - Past Surgical History HEENT Surgical History: Reports: Myringotomy w Tube(s) Musculoskeletal Surgical History: Reports: ORIF Social & Family History - Family History Family Medical History: Noncontributory - Caffeine Use Caffeine Use: Reports: Coffee - Living Situation & Occupation Living situation: Reports: , with Spouse, with Family (1 child) Occupation: Employed ([employer]) ED ROS GENERAL - Review of Systems Review Of Systems: See Below Constitutional: Reports: No Symptoms HEENT: Reports: No Symptoms Respiratory: Reports: Shortness of Breath. Denies: Cough Cardiovascular: Reports: No Symptoms Endocrine: Reports: No Symptoms GI/Abdominal: Reports: No Symptoms : Reports: No Symptoms Musculoskeletal: Reports: No Symptoms Skin: Reports: No Symptoms ED EXAM, GENERAL - Physical Exam Exam: See Below Exam Limited By: No Limitations General Appearance: Alert, No Apparent Distress Ears: Normal External Exam Nose: Normal Inspection Head: Atraumatic, Normocephalic Respiratory/Chest: No Respiratory Distress, Decreased Breath Sounds Cardiovascular: Regular Rate, Rhythm, No Edema, No Murmur GI/Abdominal: Soft, Non-Tender, No Organomegaly, No Mass Back Exam: Normal Inspection Extremities: Normal Inspection Course - Vital Signs Last Recorded V/S: Last Vital Signs Temp 97.3 F 08/04/19 07:35 Pulse 60 08/04/19 07:35 Resp 16 08/04/19 07:35 BP 113/64 08/04/19 07:35 Pulse Ox 100 08/04/19 08:04 - Orders/Labs/Meds Orders: Active Orders 24 hr Category Date Time Status RT Aerosol Therapy [RC] ASDIRECTED Care 08/04/19 07:47 Active Meds: Medications Discontinued Medications Generic Name Dose Route Start Last Admin Trade Name Oli PRN Reason Stop Dose Admin Albuterol/Ipratropium 3 ml 08/04/19 07:47 08/04/19 08:04 Duoneb 3.0-0.5 Mg/3 Ml NEB 08/04/19 07:48 3 ml ONETIME ONE Administration Prednisone 40 mg 08/04/19 07:47 08/04/19 08:13 Prednisone PO 08/04/19 07:48 40 mg ONETIME ONE Administration - Re-Assessments/Exams Free Text/Narrative Re-Assessment/Exam: 08/04/19 07:50 I ordered a duoneb, CXR and prednisone 40mg PO. 08/04/19 08:57 He feels and sounds better. I will get him on some prednisone for a few days. Departure - Departure Time of Disposition: 09:00 Disposition: Home, Self-Care 01 Condition: Good Clinical Impression: Asthma attack Qualifiers: Asthma severity: mild Asthma persistence: intermittent Qualified Code(s): J45.21 - Mild intermittent asthma with (acute) exacerbation - Discharge Information *PRESCRIPTION DRUG MONITORING PROGRAM REVIEWED*: Not Applicable *COPY OF PRESCRIPTION DRUG MONITORING REPORT IN PATIENT JEISON: Not Applicable Prescriptions: predniSONE [Prednisone] 40 mg PO DAILY #10 tablet Referrals: Pako Zuleta MD [Primary Care Provider] - Forms: ED Department Discharge, ED Return to Work/School Form Additional Instructions: Use your inhaler as needed. Take the prednisone daily for 5 days. Please return if you are worse. Sepsis Event Note - Evaluation Sepsis Screening Result: No Definite Risk - Focused Exam Vital Signs: Vital Signs Temp Pulse Resp BP Pulse Ox Pulse Ox 08/04/19 08:04 100 08/04/19 07:35 97.3 F 60 16 113/64 100 Date Exam was Performed: 08/04/19 Time Exam was Performed: 08:57 - My Orders Last 24 Hours: My Active Orders 08/04/19 07:47 RT Aerosol Therapy [RC] ASDIRECTED - Assessment/Plan Last 24 Hours: My Active Orders 08/04/19 07:47 RT Aerosol Therapy [RC] ASDIRECTED
[2019-08-04 07:56] VITALS: BP 113/64; PULSE 60
--- NOTE | 2019-08-04 08:38 | CR ---
Chest: Two views of the chest were obtained. Comparison: Prior chest x-ray of 03/24/19. Heart size and mediastinum are normal. Lungs are clear with no acute parenchymal change. Bony structures are unremarkable. Impression: 1. Nothing acute is appreciated on two-view chest x-ray. Diagnostic code #1 Study was dictated in MDT
== END 2019-08-04 09:17 | disposition home or self-care (01) ==
LOC: JD.ED 07:24
DX: J45.20 Mild intermittent asthma, uncomplicated (principal); F32.9 Major depressive disorder, single episode, unspecified; E66.9 Obesity, unspecified; Z68.32 Body mass index [BMI] 32.0-32.9, adult; Z91.048 Other nonmedicinal substance allergy status; Z79.899 Other long term (current) drug therapy
CPT/HCPCS: 71046; 94640; 99285; A9270; 99283; J7620-GY

== ENCOUNTER 2020-03-22 20:20 | Emergency (ER) | payer BC, OTHER ==
[2020-03-22 20:47] VITALS: BP 130/78
--- NOTE | 2020-03-22 21:08 | EDM.PDOC ---
ED HPI GENERAL MEDICAL PROBLEM - General Chief Complaint: Respiratory Problem Stated Complaint: SOB/101.6 FEVER Time Seen by Provider: 03/22/20 20:44 Source of Information: Reports: Patient History Limitations: Reports: No Limitations - History of Present Illness INITIAL COMMENTS - FREE TEXT/NARRATIVE: Mr. Penn is a very pleasant 30-year-old man with past medical history sig nificant for suspected asthma, who now presents to the ED stating that he has had a cough, occasionally productive of clear or yellow sputum, for more than 1 week, dyspnea since 03/20/2020, but worse today, generalized body aches, especially to his upper back, and a fever up to 101.6 degrees, as measured by an oral thermometer, around 20:00 tonight. His dyspnea is made worse if he twists his torso. He feels that he has been wheezing on and off, and believes that he is wheezing at this time. He also reports that his right sinus feels like it is "on fire" with a scant clear rhinorrhea. He denies having a sore throat. He states that his bowel movements have been somewhat loose, although normal actual diarrhea. No other gastrointestinal symptoms. The patient states that he has taking albuterol by nebulizer both 2 days ago and yesterday, but that they did not help, therefore he did not take any today. He did not take any other [id number] or home remedies. The patient is noted to not be wearing a mask in the ED. He acknowledges that he has not been taking precautions to avoid acquiring the SARS-CoV-2 virus. Here in the ED, the patient is found to be hemodynamically stable, afebrile, saturating 100% on room air. Prior to a week or so ago, the patient denies having a recent fever, chills, sore throat, ear pain, nasal or sinus congestion, cough, dyspnea, chest pain, palpitations, nausea, vomiting, constipation, diarrhea, abdominal pain, urinary symptoms, recent weight gain or weight loss, recent bloody bowel movements or black bowel movements, recent joint aches, headaches, or rashes. The patient's PCP is Dr. Pako Osman. He has not received an influenza vaccine this season, but [facility]. Generalized Pain Score (Numeric/FACES): 7 - Related Data Allergies Allergy/AdvReac Type Severity Reaction Status Date / Time dust Allergy Shortness Uncoded 03/22/20 20:47 of Breath Home Meds: Home Meds Budesonide [Rhinocort Allergy] 2 spray INH BEDTIME 12/18/17 [History] Budesonide/Formoterol Fumarate [Symbicort 160-4.5 Mcg Inhaler] 2 puff INH DAILY 12/18/17 [History] Cetirizine [ZyrTEC] 10 mg PO DAILY 12/18/17 [History] Albuterol Sulfate [Proair Hfa] 8.5 gm IH QID PRN #1 hfa.aer.ad 08/08/18 [Rx] Citalopram [Citalopram HBr] 20 mg PO DAILY 03/24/19 [History] Montelukast [Singulair] 10 mg PO DAILY 03/24/19 [History] Past Medical History HEENT History: Reports: Allergic Rhinitis, Impaired Vision Respiratory History: Reports: Asthma (suspected, not tested) Gastrointestinal History: Reports: GERD Musculoskeletal History: Reports: Fracture (left radius + ulna fracture) Psychiatric History: Reports: Anxiety, Depression Endocrine/Metabolic History: Reports: Obesity/BMI 30+ - Past Surgical History HEENT Surgical History: Reports: Myringotomy w Tube(s) (bilateral) Musculoskeletal Surgical History: Reports: ORIF (left radius/ulna) Social & Family History - Family History Family Medical History: Noncontributory - Tobacco Use Tobacco Use Status *Q: Former Tobacco User Years of Tobacco use: 4 Packs/Tins Daily: 1 Month/Year Tobacco Last Used: Quit 2014 - Caffeine Use Caffeine Use: Reports: Coffee - Alcohol Use Alcohol Use History: Yes Alcohol Use Frequency: Socially - Recreational Drug Use Recreational Drug Use: No - Living Situation & Occupation Living situation: Reports: , with Spouse, with Family (2 kids) Occupation: Employed ([employer]) ED ROS GENERAL - Review of Systems Review Of Systems: Comprehensive ROS is negative, except as noted in HPI. ED EXAM, GENERAL - Physical Exam Exam: See Below Exam Limited By: No Limitations General Appearance: Alert, WD/WN, Anxious (appears to be hyperventilating) Eye Exam: Bilateral Eye: EOMI, Normal Inspection Ears: Normal External Exam, Hearing Grossly Normal Nose: Normal Inspection Throat/Mouth: Normal Inspection, Normal Lips, Normal Voice, No Airway Compromise Head: Atraumatic, Normocephalic Neck: Normal Inspection, Full Range of Motion Respiratory/Chest: No Respiratory Distress, Lungs Clear, Normal Breath Sounds, No Accessory Muscle Use. No: Decreased Breath Sounds, Crackles, Rhonchi, Wheezing, Stridor, Prolonged Expiration Cardiovascular: Normal Peripheral Pulses, Regular Rate, Rhythm, No Edema, No Gallop, No JVD, No Murmur, No Rub Peripheral Pulses: 3+: Radial (L), Radial (R) GI/Abdominal: Normal Bowel Sounds, Soft, Non-Tender, No Organomegaly, No Distention, No Abnormal Bruit, No Mass Back Exam: Normal Inspection, Full Range of Motion, NT Extremities: Normal Inspection, Normal Range of Motion, No Pedal Edema, Normal Capillary Refill Neurological: Alert, Oriented, Normal Cognition, No Motor/Sensory Deficits Psychiatric: Anxious Skin Exam: Warm, Dry, Intact, Normal Color, No Rash Course - Vital Signs Last Recorded V/S: Last Vital Signs Temp 36.9 C 03/22/20 20:44 Pulse 90 03/22/20 20:44 Resp 18 03/22/20 20:44 BP 130/78 03/22/20 20:44 Pulse Ox 100 03/22/20 20:44 - Orders/Labs/Meds Orders: Active Orders 24 hr Category Date Time Status Influenza Vaccine Charge [RC] .DISCHARGE Care 03/22/20 21:01 Active Chest 2V [CR] Stat Exams 03/22/20 21:00 Taken CORONAVIRUS COVID-19 PCR [facility] Stat Lab 03/22/20 21:00 Ordered Meds: Medications Discontinued Medications Generic Name Dose Route Start Last Admin Trade Name Freq PRN Reason Stop Dose Admin Influenza Virus Vaccine 1 each 03/22/20 21:01 Pharmacy To Dose - Influenza Vaccine IM 03/22/20 21:02 ONETIME ONE Influenza Virus Vaccine 60 mcg 03/22/20 21:15 Fluzone Quad [id number] Syringe IM 03/22/20 21:16 .ONCE ONE - Re-Assessments/Exams Free Text/Narrative Re-Assessment/Exam: 03/22/20 21:03 As above, the patient has had a cough, occasionally productive of clear or yellow sputum for more than a week, dyspnea for the past couple of days, worse today, generalized body aches, especially to his upper back, and a fever tonight. He feels that he has been wheezing, including now, although on examination, his lungs are actually entirely clear to auscultation bilaterally. He is afebrile, saturating 100% on room air. He acknowledges that he has not been taking precautions to avoid acquiring COVID-19, and his symptoms are very consistent with COVID-19. For today's purposes, I have ordered a chest x-ray and a send out swab to test for the SARS-CoV-2 virus. If his chest x-ray shows a unilateral infiltrate concerning for bacterial pneumonia, I will obtain blood work, otherwise, if it either shows nothing or bilateral infiltrates consistent with COVID-19, then blood work is not necessary. 03/22/20 22:00 2-view chest radiograph is read by vRnate as "No acute findings. No change." 03/22/20 22:02 Chest x-ray results discussed with the patient. As above, the patient may have COVID-19, or his symptoms could be due to some other illness, or even anxiety/hyperventilation, since his oxygen saturation is 100% on room air and his lungs are entirely clear to auscultation bilaterally. I advised him that his symptoms are not due to an asthma exacerbation. I recommended that the patient strictly quarantine until he he tests negative. The patient will be given an influenza vaccine prior to discharge. Departure - Departure Time of Disposition: 22:03 Disposition: Home, Self-Care 01 Condition: Good Clinical Impression: Cough, Dyspnea, Fever - Discharge Information *PRESCRIPTION DRUG MONITORING PROGRAM REVIEWED*: Not Applicable *COPY OF PRESCRIPTION DRUG MONITORING REPORT IN PATIENT JEISON: Not Applicable Instructions: Shortness of Breath, Adult, [id number], Cough, Adult, [id number], Fever, Adult, [id number] Referrals: Pako Zuleta MD [Primary Care Provider] - Forms: ED Department Discharge Additional Instructions: You were seen in the emergency room after developing a cough more than a week ago, shortness of breath for the past couple of days, worse tonight, generalized body aches, and a fever. Work-up in the ER included a chest x-ray, which returned completely normal. It is unclear what the cause of your symptoms is, however, it is very possible that you have COVID-19. You will be notified within the next few days of your test results from [facility]. We recommend that you strictly quarantine until you test negative, twice. If any other problems, please do not hesitate to return to the ER. You were given an influenza vaccine during your ER visit. Sepsis Event Note (ED) - Evaluation Sepsis Screening Result: No Definite Risk - Focused Exam Vital Signs: Vital Signs Temp Pulse Resp BP Pulse Ox 03/22/20 20:44 36.9 C 90 18 130/78 100 - My Orders Last 24 Hours: My Active Orders 03/22/20 21:00 Chest 2V [CR] Stat CORONAVIRUS COVID-19 PCR [facility] Stat 03/22/20 21:01 Influenza Vaccine Charge [RC] .DISCHARGE - Assessment/Plan Last 24 Hours: My Active Orders 03/22/20 21:00 Chest 2V [CR] Stat CORONAVIRUS COVID-19 PCR [facility] Stat 03/22/20 21:01 Influenza Vaccine Charge [RC] .DISCHARGE
[2020-03-22] MEDS ORDERED: FLU VACC QS2020-21(6MOS UP)/PF 60 MCG/0.5 ML SYRINGE IM ONE (21:15)
[2020-03-22 22:37] VITALS: PULSE 80
--- NOTE | 2020-03-25 10:33 | CR ---
PROCEDURE INFORMATION: Exam: XR Chest, 2 Views Exam date and time: 03/22/2020 9:30 PM Age: 30 years old Clinical indication: Shortness of breath; Patient HX: Patient having tightness in chest and SOB w/out exertion onset 3 days ago and worsening today. HX asthma; Additional info: Prior image report scanned in for review TECHNIQUE: Imaging protocol: XR of the chest Views: 2 views. COMPARISON: DX Chest 2V 08/04/2019 7:48 AM FINDINGS: Lungs: Unremarkable. No consolidation. Pleural space: Unremarkable. No pleural effusion. No pneumothorax. Heart/Mediastinum: Unremarkable. No cardiomegaly. Bones/joints: Unremarkable. IMPRESSION: No acute findings. No change. Thank you for allowing us to participate in the care of your patient. Dictated and Authenticated by: Otis Levin MD 03/22/2020 10:52 PM Central Time ([place] & [place]) LIZ
== END 2020-03-22 22:30 | disposition home or self-care (01) ==
LOC: JD.ED 20:20
DX: U07.1 COVID-19 (principal); J45.909 Unspecified asthma, uncomplicated; F32.9 Major depressive disorder, single episode, unspecified; E66.9 Obesity, unspecified; Z68.33 Body mass index [BMI] 33.0-33.9, adult; Z91.048 Other nonmedicinal substance allergy status; Z23 Encounter for immunization; Z87.891 Personal history of nicotine dependence
CPT/HCPCS: 71046; 71046-26; 90686; 99282; 99285-25; G0008; U0002

== ENCOUNTER 2021-01-12 20:30 | Emergency (ER) | payer MEDICAID ==
[2021-01-12 20:48] VITALS: BP 134/79; PULSE 71
--- NOTE | 2021-01-12 20:50 | EDM.PDOC ---
ED HPI GENERAL MEDICAL PROBLEM - General Chief Complaint: Lower Extremity Injury/Pain Stated Complaint: STEPPED ON A NAIL/BOTH FEET Time Seen by Provider: 01/12/21 20:44 Source of Information: Reports: Patient, RN Notes Reviewed History Limitations: Reports: No Limitations - History of Present Illness INITIAL COMMENTS - FREE TEXT/NARRATIVE: Patient is a 30-year-old male who presents to the ER for evaluation of stepping on some nails. Patient notes he was wearing crocs. States that he was walking outside, in the dark, when he punctured the bottoms of both feet with some 16 pending nails. He does not think that any of these broke off into his feet. Has 3 separate puncture wounds, to to the bottom of his right foot, and one to the left foot. Bleeding is under control this time. Patient is not sure of his last Tdap booster. He did not take any sort of pain medication prior to coming to the ER. Been feeling well prior to this, no fevers or chills, cough or shortness of breath, any sort of nausea vomiting diarrhea. Bilateral Feet Pain Score (Numeric/FACES): 4 - Related Data Allergies Allergy/AdvReac Type Severity Reaction Status Date / Time dust Allergy Shortness Uncoded 03/22/20 20:47 of Breath Home Meds: Home Meds Budesonide [Rhinocort Allergy] 2 spray INH BEDTIME 12/18/17 [History] Budesonide/Formoterol Fumarate [Symbicort 160-4.5 Mcg Inhaler] 2 puff INH DAILY 12/18/17 [History] Cetirizine [ZyrTEC] 10 mg PO DAILY 12/18/17 [History] Albuterol Sulfate [Proair Hfa] 8.5 gm IH QID PRN #1 hfa.aer.ad 08/08/18 [Rx] Citalopram [Citalopram HBr] 20 mg PO DAILY 03/24/19 [History] Montelukast [Singulair] 10 mg PO DAILY 03/24/19 [History] Past Medical History HEENT History: Reports: Allergic Rhinitis, Impaired Vision Respiratory History: Reports: Asthma (suspected, not tested) Gastrointestinal History: Reports: GERD Musculoskeletal History: Reports: Fracture (left radius + ulna fracture) Psychiatric History: Reports: Anxiety, Depression Endocrine/Metabolic History: Reports: Obesity/BMI 30+ - Past Surgical History HEENT Surgical History: Reports: Myringotomy w Tube(s) (bilateral) Musculoskeletal Surgical History: Reports: ORIF (left radius/ulna) Social & Family History - Family History Family Medical History: No Pertinent Family History - Caffeine Use Caffeine Use: Reports: Coffee - Living Situation & Occupation Living situation: Reports: , with Spouse, with Family (2 kids) Occupation: Employed ([employer]) Review of Systems - Review of Systems Review Of Systems: Comprehensive ROS is negative, except as noted in HPI. ED EXAM, GENERAL - Physical Exam Exam: See Below Exam Limited By: No Limitations General Appearance: Alert, WD/WN, No Apparent Distress Respiratory/Chest: No Respiratory Distress, Lungs Clear, Normal Breath Sounds, No Accessory Muscle Use, Chest Non-Tender Cardiovascular: Normal Peripheral Pulses, Regular Rate, Rhythm, No Edema Peripheral Pulses: 2+: Dorsalis Pedis (L), Dorsalis Pedis (R) Extremities: Normal Capillary Refill, Other (3 separate puncture wounds to the R and L plantar surface of feet) Neurological: Alert, Oriented, Normal Cognition, No Motor/Sensory Deficits Psychiatric: Normal Affect, Normal Mood Skin Exam: Warm, Dry, Normal Color, No Rash, Wound/Incision (3 puncture wounds, 2 to the right plantar surface of his foot, 1 to the left plantar surface of his foot.) Course - Vital Signs Last Recorded V/S: Last Vital Signs Temp 96.9 F 01/12/21 20:47 Pulse 71 01/12/21 20:47 Resp 20 01/12/21 20:47 BP 134/79 01/12/21 20:47 Pulse Ox 98 01/12/21 20:47 - Orders/Labs/Meds Orders: Active Orders 24 hr Category Date Time Status Vaccines to be Administered [RC] PER UNIT ROUTINE Care 01/12/21 20:55 Ordered Medication Orders Diphtheria/Tetanus/Acell Pertussis (Diphtheria,Pertussis(Acell),Tetanus Vaccine 0.5 Ml Syringe) 0.5 ml IM .ONCE ONE Stop: 01/12/21 20:56 Ketorolac Tromethamine (Ketorolac 60 Mg/2 Ml Sdv) 60 mg IM ONETIME ONE Stop: 01/12/21 20:56 Meds: Medications Generic Name Dose Route Start Last Admin Trade Name Freq PRN Reason Stop Dose Admin Diphtheria/Tetanus/Acell Pertussis 0.5 ml 01/12/21 20:55 Diphtheria,Pertussis(Acell),Tetanus Vaccine 0.5 Ml Syringe IM 01/12/21 20:56 .ONCE ONE Ketorolac Tromethamine 60 mg 01/12/21 20:55 Ketorolac 60 Mg/2 Ml Sdv IM 01/12/21 20:56 ONETIME ONE - Re-Assessments/Exams Free Text/Narrative Re-Assessment/Exam: 01/12/21 21:01 The patient presents to the ER for evaluation of his puncture wounds, he is not sure of his Tdap, so we will go ahead and update that for tonight's purposes. I did offer the patient some Toradol, however he does not really like needles and will just take some ibuprofen at home. This is fine with me. Departure - Departure Time of Disposition: 21:02 Disposition: Home, Self-Care 01 Condition: Good Clinical Impression: Puncture wound of skin from metal nail - Discharge Information *PRESCRIPTION DRUG MONITORING PROGRAM REVIEWED*: No *COPY OF PRESCRIPTION DRUG MONITORING REPORT IN PATIENT JEISON: No Instructions: Puncture Wound, [id number] Referrals: Pako Zuleta MD [Primary Care Provider] - Forms: ED Department Discharge Additional Instructions: You were evaluated in the ER today for the puncture wounds on your bilateral feet. Your tetanus booster was updated at today's visit, and should be good for 10 years from this date. Recommend you take about 800 mg ibuprofen or 4 tablets at least 3 or 4 times a day for ongoing pain management. Do not exceed 3200 mg ibuprofen in a 24-hour time span. You may pad the bottoms of your feet, with some gauze in your work boots if needed for the next few days to provide further comfort. You may try to wash or cleanse the area with warm soapy water, or soak the feet in Epsom salts when you get home at night. If he should develop any fevers or chills, redness or tenderness/swelling to the areas, or they start to produce any drainage you should be seen again, as there could be an infection, and will likely need a course of antibiotics. Otherwise do not hesitate to return to the ER at any time if symptoms change or worsen. Sepsis Event Note (ED) - Focused Exam Vital Signs: Vital Signs Temp Pulse Resp BP Pulse Ox 01/12/21 20:47 96.9 F 71 20 134/79 98 - My Orders Last 24 Hours: My Active Orders 01/12/21 20:55 Vaccines to be Administered [RC] PER UNIT ROUTINE - Assessment/Plan Last 24 Hours: My Active Orders 01/12/21 20:55 Vaccines to be Administered [RC] PER UNIT ROUTINE
[2021-01-12] MEDS ORDERED: Diphtheria,Pertussis(Acell),Tetanus Vaccine 0.5 ML Syringe IM ONE (20:55)
[2021-01-12] MEDS ORDERED: Ketorolac 60 MG/2 ML SDV IM ONE (20:55)
== END 2021-01-12 21:25 | disposition home or self-care (01) ==
LOC: JD.ED 20:30
DX: S91.331A Puncture wound without foreign body, right foot, initial encounter (principal); E66.9 Obesity, unspecified; Z91.09 Other allergy status, other than to drugs and biological substances; Z23 Encounter for immunization; Z68.35 Body mass index [BMI] 35.0-35.9, adult; W45.0XXA Nail entering through skin, initial encounter
CPT/HCPCS: 90471; 90715; 99283

== ENCOUNTER 2021-01-14 23:34 | Emergency (ER) | payer MEDICAID ==
[2021-01-14 23:52] VITALS: BP 137/87; PULSE 70
[2021-01-15] MEDS ORDERED: Levofloxacin 750 MG Tab PO STA (00:28)
[2021-01-15] MEDS ORDERED: Clindamycin HCl 150 MG Cap PO STA (00:28)
--- NOTE | 2021-01-15 00:32 | EDM.PDOC ---
ED HPI GENERAL MEDICAL PROBLEM - General Chief Complaint: Lower Extremity Injury/Pain Stated Complaint: NAIL REMOVED FROM FOOT/PAIN WORSE NOW Time Seen by Provider: 01/15/21 00:14 Source of Information: Reports: Patient History Limitations: Reports: No Limitations - History of Present Illness INITIAL COMMENTS - FREE TEXT/NARRATIVE: Mr. Penn is a very pleasant 30-year-old man, who, medical records indicate, was seen in this ED this past 01/12/2021, after stepping on nails with both of his feet while wearing Crocks. He suffered a single puncture wound to the sole of his left foot, and two puncture wounds to the sole of his right foot. He was given a tetanus vaccination before being discharged home. He now returns to the ED stating that he had pain to the sole of his right foot on Wednesday, which got worse tonight. He is indicating, specifically, the puncture wound to his distal right sole, over the 4th metatarsal. He has not noticed any purulent drainage. No recent fever. No pain to the sole of his left foot. Here in the ED, the patient is found to be hemodynamically stable, afebrile, saturating 100% on room air. He appears to be uncomfortable, but in no acute distress. Prior to Wednesday, the patient denies having a recent fever, chills, sore throat, ear pain, nasal or sinus congestion, cough, dyspnea, chest pain, palpitations, nausea, vomiting, constipation, diarrhea, abdominal pain, urinary symptoms, recent weight gain or weight loss, recent bloody bowel movements or black bowel movements, recent joint aches, headaches, or rashes. The patient's PCP is Dr. Pako Osman. Right Foot Pain Score (Numeric/FACES): 10 - Related Data Allergies Allergy/AdvReac Type Severity Reaction Status Date / Time dust Allergy Shortness Uncoded 03/22/20 20:47 of Breath Home Meds: Home Meds Budesonide [Rhinocort Allergy] 2 spray INH BEDTIME 12/18/17 [History] Budesonide/Formoterol Fumarate [Symbicort 160-4.5 Mcg Inhaler] 2 puff INH DAILY 12/18/17 [History] Cetirizine [ZyrTEC] 10 mg PO DAILY 12/18/17 [History] Albuterol Sulfate [Proair Hfa] 8.5 gm IH QID PRN #1 hfa.aer.ad 08/08/18 [Rx] Citalopram [Citalopram HBr] 20 mg PO DAILY 03/24/19 [History] Montelukast [Singulair] 10 mg PO DAILY 03/24/19 [History] Acetaminophen/oxyCODONE [Percocet 325-5 MG] 1 - 2 tab PO Q6H PRN #14 tab 01/15/21 [Rx] Clindamycin HCl 1 cap PO Q6H #15 capsule 01/15/21 [Rx] Levofloxacin 1 tab PO QAM #5 tablet 01/15/21 [Rx] Past Medical History HEENT History: Reports: Allergic Rhinitis, Impaired Vision Respiratory History: Reports: Asthma (suspected, not tested) Gastrointestinal History: Reports: GERD Musculoskeletal History: Reports: Fracture (left radius + ulna) Psychiatric History: Reports: Anxiety, Depression Endocrine/Metabolic History: Reports: Obesity/BMI 30+ - Infectious Disease History Infectious Disease History: Reports: Chicken Pox - Past Surgical History HEENT Surgical History: Reports: Myringotomy w Tube(s) (bilateral) Musculoskeletal Surgical History: Reports: ORIF (left radius/ulna) Social & Family History - Tobacco Use Tobacco Use Status *Q: Never Tobacco User - Caffeine Use Caffeine Use: Reports: Coffee, Soda - Living Situation & Occupation Living situation: Reports: , with Spouse, with Family (2 kids) Occupation: Employed ([employer]) Review of Systems - Review of Systems Review Of Systems: Comprehensive ROS is negative, except as noted in HPI. ED EXAM, GENERAL - Physical Exam Exam: See Below Exam Limited By: No Limitations General Appearance: Alert, WD/WN, No Apparent Distress Extremities: Other (Mild swelling without noticeable erythema to the distal right foot, including the dorsal aspect. There is tenderness to this area of swelling. There are 2 puncture wounds on the right sole - the proximal one is dry and nontender, while the distal one, over the distal 4th metatarsal is also dry, bu) Course - Vital Signs Last Recorded V/S: Last Vital Signs Temp 36.1 C 01/14/21 23:47 Pulse 70 01/14/21 23:47 Resp 16 01/14/21 23:47 BP 137/87 01/14/21 23:47 Pulse Ox 100 01/14/21 23:47 - Orders/Labs/Meds Meds: Medications Discontinued Medications Generic Name Dose Route Start Last Admin Trade Name Oli PRN Reason Stop Dose Admin Hydrocodone Bitart/Acetaminophen 2 tab 01/15/21 01:18 Acetaminophen/Hydrocodone 325-5 Mg Tab PO 01/15/21 01:19 ONETIME ONE Clindamycin HCl 300 mg 01/15/21 00:28 01/15/21 00:38 Clindamycin Hcl 150 Mg Cap PO 01/15/21 00:29 300 mg ONETIME STA Administration Levofloxacin 750 mg 01/15/21 00:28 01/15/21 00:38 Levofloxacin 750 Mg Tab PO 01/15/21 00:29 750 mg ONETIME STA Administration - Re-Assessments/Exams Free Text/Narrative Re-Assessment/Exam: 01/15/21 00:29 As above, the patient stepped on some nails while wearing Crocs Wednesday night, suffering 1 puncture wound to his left sole, and 2 puncture wounds to his right. He now returns to the ED due to worsening pain to the puncture wound over his distal 4th metatarsal. There is no purulent drainage, but the distal foot is somewhat swollen, and there is erythema to the dorsal aspect of the foot. The area of swelling is quite tender. I have ordered x-rays to evaluate for foreign bodies, and will start the patient on levofloxacin and clindamycin. 01/15/21 01:14 4-view radiographs of the right foot appear to be grossly normal, with no fractures, dislocations, foreign bodies, or soft tissue gas seen. Formal read per the Radiologist pending. 01/15/21 01:18 X-ray results discussed with the patient. I will discharge him home with prescriptions for levofloxacin and clindamycin, to complete a 5-day course, along with [place], that he can take along with OTC ibuprofen. I would like him to follow-up with Dr. Osman on Wednesday. Departure - Departure Time of Disposition: :19 Disposition: Home, Self-Care 01 Condition: Good Clinical Impression: Puncture wound of foot excluding toes with infection - Discharge Information *PRESCRIPTION DRUG MONITORING PROGRAM REVIEWED*: Not Applicable *COPY OF PRESCRIPTION DRUG MONITORING REPORT IN PATIENT JEISON: Not Applicable Prescriptions: Clindamycin HCl 1 cap PO Q6H #15 capsule Levofloxacin 1 tab PO QAM #5 tablet Acetaminophen/oxyCODONE [Percocet 325-5 MG] 1 - 2 tab PO Q6H PRN #14 tab PRN Reason: Pain (Severe 7-10) Instructions: Puncture Wound, [id number] Referrals: Pako Zuleta MD [Primary Care Provider] - Forms: ED Department Discharge Additional Instructions: You were seen in the emergency room for worsening pain to the sole of your right foot, after stepping on a nail on Wednesday. Work-up in the ER included x-rays of your right foot, which showed no broken or chipped bones, foreign bodies, or gas. You have been started on the antibiotics levofloxacin and clindamycin, and given prescriptions for each for an additional 5 days. Take 1 tablet of levofloxacin every morning, starting morning, 01/16/2021, as prescribed. Take 1 capsule of clindamycin every 6 hours, starting this morning, as prescribed. We recommend you take [id number] ibuprofen, 3 tablets (600 mg) up to every 8 hours, with food, [id number] initially, then as needed for discomfort. You have been given a prescription for the narcotic pain reliever Percocet. You may take 1 to 2 tablets of Percocet up to every 6 hours, as needed for pain not relieved by ibuprofen. If you take Percocet, do not drive or operate heavy machinery for 12 hours afterwards. Percocet may cause constipation, so consider taking a stool softener. We recommend you follow-up with your PCP, Dr. Pako Osman, this coming 01/17/2021. Call his office this morning to make an appointment. If any other problems, please do not hesitate to return to the ER. Sepsis Event Note (ED) - Evaluation Sepsis Screening Result: No Definite Risk
[2021-01-15] MEDS ORDERED: Acetaminophen/HYDROcodone 325-5 MG Tab PO ONE (01:18)
--- NOTE | 2021-01-15 08:11 | CR ---
Right foot: 4 views centered to the right foot were obtained. Comparison: No prior foot study is available. Slight irregularity is seen on the lateral view only within the proximal fifth metatarsal. Difficult to exclude a nondisplaced fracture if patient has correlating symptoms. No additional osseous abnormality is appreciated. No radiopaque soft tissue foreign body is seen. Impression: 1. Slight irregularity is seen on the lateral view only within the proximal fifth metatarsal. Difficult to exclude a nondisplaced fracture, please correlate. 2. Other portions of the right foot exam appear unremarkable. No radiopaque soft tissue foreign body is seen. Diagnostic code #3
== END 2021-01-15 01:45 | disposition home or self-care (01) ==
LOC: JD.ED 23:34
DX: S91.331A Puncture wound without foreign body, right foot, initial encounter (principal); L08.9 Local infection of the skin and subcutaneous tissue, unspecified; J45.909 Unspecified asthma, uncomplicated; E66.9 Obesity, unspecified; Z68.30 Body mass index [BMI] 30.0-30.9, adult; Z91.09 Other allergy status, other than to drugs and biological substances; W45.0XXA Nail entering through skin, initial encounter
CPT/HCPCS: 73630; 99283; A9270

== ENCOUNTER 2021-05-31 13:19 | Emergency (ER) | payer MEDICAID ==
[2021-05-31 13:45] VITALS: BP 127/104; PULSE 100
[2021-05-31] MEDS ORDERED: HYDROmorphone 1 MG/ML Syringe IVPUSH ONE (13:47)
[2021-05-31] MEDS ORDERED: Metoclopramide 10 MG/2 ML SDV IVPUSH ONE (13:47)
[2021-05-31] MEDS ORDERED: Acetaminophen 325 MG Tab PO ONE (13:48)
[2021-05-31] MEDS ORDERED: Dextrose 5%-0.9% NaCl 1,000 ML IV SCH (14:00)
[2021-05-31] MEDS ORDERED: Ketorolac 30 MG/ML SDV IVPUSH SCH (14:00)
[2021-05-31 14:36] LABS: CORONAVIRUS COVID-19 NAA POSITIVE (NEGATIVE)
[2021-05-31] MEDS ORDERED: Magnesium Citrate Solution 296 ML Bottle PO ONE (15:20)
== END 2021-05-31 15:35 | disposition home or self-care (01) ==
LOC: JD.ED 13:19
DX: U07.1 COVID-19 (principal); K59.01 Slow transit constipation; E66.9 Obesity, unspecified; Z68.36 Body mass index [BMI] 36.0-36.9, adult; Z91.09 Other allergy status, other than to drugs and biological substances; Z72.0 Tobacco use
CPT/HCPCS: 0241U; 36415; 74176; 80053; 81003; 85025; 86140; 96374; 96375; 99284; A9270; J1170; J2765; J7042

== ENCOUNTER 2021-07-29 00:40 | Emergency (ER) | payer BC, MEDICAID ==
[2021-07-29 00:52] VITALS: BP 147/89; PULSE 90
[2021-07-29] MEDS ORDERED: Lidocaine 1% 0 ML ONE (01:13)
[2021-07-29] MEDS ORDERED: Lidocaine 1% 50 ML MDV INJECT SCH (01:15)
[2021-07-29] MEDS ORDERED: Lidocaine 1% PF 2 ML SDV INJECT ONE (01:18)
[2021-07-29] MEDS ORDERED: Lidocaine 1% 10 ML MDV INJECT ONE (02:18)
[2021-07-29] MEDS ORDERED: Lidocaine 1% 2 ML ONE (02:21)
== END 2021-07-29 02:52 | disposition home or self-care (01) ==
LOC: JD.ED 00:40
DX: S71.111A Laceration without foreign body, right thigh, initial encounter (principal); K21.9 Gastro-esophageal reflux disease without esophagitis; E66.9 Obesity, unspecified; Z68.30 Body mass index [BMI] 30.0-30.9, adult; Z86.16 Personal history of COVID-19; Z91.048 Other nonmedicinal substance allergy status; W26.0XXA Contact with knife, initial encounter; Y99.0 Civilian activity done for income or pay
CPT/HCPCS: 12001; 99282; 99283

== ENCOUNTER 2022-09-26 20:47 | Emergency (ER) | payer BC, MEDICAID ==
[2022-09-26 21:07] VITALS: BP 141/93; PULSE 77
[2022-09-26] MEDS ORDERED: Ketorolac 60 MG/2 ML SDV IM ONE (21:12)
[2022-09-26] MEDS ORDERED: Penicillin G Benzathine 1,200,000 Units/2 ML Syringe IM ONE (22:20)
== END 2022-09-26 22:53 | disposition home or self-care (01) ==
LOC: JD.ED 20:47
DX: J02.9 Acute pharyngitis, unspecified (principal); J45.909 Unspecified asthma, uncomplicated; K21.9 Gastro-esophageal reflux disease without esophagitis; E66.9 Obesity, unspecified; Z68.30 Body mass index [BMI] 30.0-30.9, adult; Z86.16 Personal history of COVID-19; Z91.048 Other nonmedicinal substance allergy status
CPT/HCPCS: 87651; 96372; 99283; J0561; J1885

== ENCOUNTER 2023-02-23 11:06 | Emergency (ER) | payer BC ==
[2023-02-23 12:14] LABS: APPEARANCE,URINE CLEAR (Clear); BILIRUBIN,URINE NEGATIVE (Negative); COLOR,URINE YELLOW (Yellow); GLUCOSE,URINE NEGATIVE (Negative); KETONES,URINE NEGATIVE (Negative); LEUKOCYTE ESTERASE,URINE NEGATIVE (Negative); NITRITE,URINE NEGATIVE (Negative); OCCULT BLOOD,URINE NEGATIVE (Negative); PROTEIN,URINE NEGATIVE (Negative); UROBILINOGEN,URINE 0.2 (0.2-1.0)
[2023-02-23 14:42] VITALS: BP 134/88; PULSE 74
== END 2023-02-23 14:33 | disposition home or self-care (01) ==
LOC: JD.ED 11:06
DX: R10.30 Lower abdominal pain, unspecified (principal); J45.909 Unspecified asthma, uncomplicated; E66.9 Obesity, unspecified; Z91.09 Other allergy status, other than to drugs and biological substances
CPT/HCPCS: 76870; 76870-26; 81003; 93010; 93975; 99282; 99284

== ENCOUNTER 2024-02-05 02:06 | Emergency (ER) | payer BC ==
[2024-02-05 02:23] LABS: BASOPHILS ABSOLUTE AUTO 0.1 K/mm3 (0.0-0.2); BASOPHILS PERCENT AUTO 0.7 % (0.0-1.0); EOSINOPHILS ABSOLUTE AUTO 0.2 K/mm3 (0.0-0.4); EOSINOPHILS PERCENT AUTO 2.6 % (0.0-6.0); HEMATOCRIT 46.7 % (42.0-52.0); HEMOGLOBIN 15.7 gm/dl (14.0-18.0); IMMATURE GRAN ABSOLUTE AUTO 0.02 K/mm3 (0.00-0.05); IMMATURE GRAN PERCENT AUTO 0.2 % (0.0-0.4); LYMPHOCYTES ABSOLUTE AUTO 3.8 K/mm3 (1.0-4.8); LYMPHOCYTES PERCENT AUTO 42.4 % (24.0-44.0); MEAN CORPUSCULAR HEMOGLOBIN 29.9 pg (28.0-32.0); MEAN CORPUSCULAR HGB CONC 33.6 g/dl (32.0-36.0); MEAN PLATELET VOLUME 9.2 fl (9.4-12.4); NEUTROPHILS ABSOLUTE AUTO 3.8 K/mm3 (1.8-7.7); NEUTROPHILS PERCENT AUTO 43.1 % (41.0-71.0); PLATELET COUNT,PLT 244 K/mm3 (150-400); RED BLOOD CELL COUNT 5.25 M/mm3 (4.52-5.90); WHITE BLOOD CELL COUNT,WBC 8.89 K/mm3 (3.9-11.3)
[2024-02-05] MEDS: Sodium Chloride 0.9% 10 ML Syringe FLUSH PRN (02:39)
[2024-02-05] MEDS: Famotidine 20 MG Tab PO ONE (02:39)
[2024-02-05] MEDS: Alum Hydrox/Mag Hydrox/Simeth 30 ML, Lidocaine 2% 15 ML PO ONE (02:39)
[2024-02-05 02:50] LABS: A/G RATIO 1.3 (1-2); ALBUMIN 4.1 g/dl (3.4-5.0); ANION GAP 12.8 (5-15); BILIRUBIN TOTAL 0.2 mg/dL (0.2-1.0); BUN/CREATININE RATIO 28.9 (14-18); CALCIUM 10.5 mg/dL (8.5-10.1); CREATININE 0.9 mg/dL (0.7-1.3); EST CRCL DRUG DOSING (CG) 130.53 mL/min; POTASSIUM,K 3.8 mEq/L (3.5-5.1); PROTEIN TOTAL,TP 7.3 g/dl (6.4-8.2)
[2024-02-05 03:05] LABS: CORONAVIRUS COVID-19 NAA NEGATIVE (NEGATIVE); INFLUENZA A NAA NEGATIVE (NEGATIVE); RESPIRATORY SYNCYTIAL VIR NAA NEGATIVE (NEGATIVE)
[2024-02-05 05:33] VITALS: BP 127/61; PULSE 69
== END 2024-02-05 05:25 | disposition home or self-care (01) ==
LOC: JD.ED 02:06
DX: R07.89 Other chest pain (principal); E66.9 Obesity, unspecified; Z86.16 Personal history of COVID-19; Z87.891 Personal history of nicotine dependence; Z79.899 Other long term (current) drug therapy; Z91.048 Other nonmedicinal substance allergy status; Z68.35 Body mass index [BMI] 35.0-35.9, adult
CPT/HCPCS: 0241U; 36415; 71045; 80053; 83690; 84484; 85025; 93005; 99285; A9270; J3490

== ENCOUNTER 2024-08-01 21:08 | Emergency (ER) | payer BC ==
[2024-08-01 21:22] VITALS: BP 133/65; PULSE 63
[2024-08-01] MEDS: Dexamethasone 6 MG TABLET PO ONE (21:39)
[2024-08-01] MEDS: Albuterol/Ipratropium 3.0-0.5 MG/3 ML Neb Soln NEB ONE ×2 (21:44)
== END 2024-08-01 22:21 | disposition home or self-care (01) ==
LOC: JD.ED 21:08
DX: J45.909 Unspecified asthma, uncomplicated (principal); E66.9 Obesity, unspecified; Z87.19 Personal history of other diseases of the digestive system; Z86.59 Personal history of other mental and behavioral disorders; Z86.16 Personal history of COVID-19; Z91.048 Other nonmedicinal substance allergy status; Z79.899 Other long term (current) drug therapy; Z79.51 Long term (current) use of inhaled steroids; Z68.36 Body mass index [BMI] 36.0-36.9, adult
CPT/HCPCS: 94640; 99284; J7620; J8540; A9270-GY

== ENCOUNTER 2024-08-24 16:22 | Emergency (ER) | payer BC ==
[2024-08-24 17:01] VITALS: BP 144/91; PULSE 80
== END 2024-08-24 18:01 | disposition home or self-care (01) ==
LOC: JD.ED 16:22
DX: S46.911A Strain of unspecified muscle, fascia and tendon at shoulder and upper arm level, right arm, initial encounter (principal); J45.909 Unspecified asthma, uncomplicated; Z91.048 Other nonmedicinal substance allergy status; Z79.51 Long term (current) use of inhaled steroids; Z86.16 Personal history of COVID-19; W01.0XXA Fall on same level from slipping, tripping and stumbling without subsequent striking against object, initial encounter; Y93.89 Activity, other specified
CPT/HCPCS: 73030-26-RT; 73030-RT; 99283